=== PATIENT | male | born 1965 | race Caucasian/White ===

== ENCOUNTER 2021-02-24 13:24 | Emergency (ER) | payer OTHER ==
[~2021-02-24 13:24] MED LIST: COLACE100 MG PO; DULCOLAX10 MG PR; NORCO 5-325 TA1 EACH PO; NORVASC5 MG PO; ZOFRAN4 MG PO
[2021-02-24 14:11] LABS: BASOPHIL 0.6 % (0-2); EOSINOPHIL 4.3 % (0-5); HCT 45.5 % (42.0-52.0); LYMPHOCYTE 30.1 % (15-48); MCH 30.9 pg (25.0-31.0); MCV 93.8 fL (78.0-100.0); MONOCYTE 7.3 % (0-12); MPV 10.1 fL (6.0-9.5); NEUTROPHIL 57.4 % (41-80); NRBC 0; PLT 244 K/uL (150-400); RBC 4.85 M/uL (4.70-6.00); RDW 12.2 % (11.5-14.0); WBC 6.9 K/uL (4.0-10.5)
[2021-02-24 14:17] LABS: ALBUMIN 3.6 g/dL (3.4-5.0); BILIRUBIN - TOTAL 0.4 mg/dL (0.2-1.0); BUN/CREAT RATIO (CALC) 14.7 RATIO; CREATININE 1.09 mg/dL (0.67-1.17); GLOBULIN (CALCULATION) 2.9 g/dL; POTASSIUM 3.8 mmol/L (3.5-5.1); TOTAL PROTEIN 6.5 g/dL (6.4-8.2)
[2021-02-24 14:22] LABS: CKMB 1.7 ng/mL (0.0-3.6); PRO-BNP 10 pg/mL (<125)
[2021-02-24 14:36] LABS: INR 1.05 (0.9-1.2); PROTHROMBIN TIME 13.1 SECONDS (11.8-13.4); PTT 24.9 SECONDS (24.4-34.7)
== END 2021-02-24 18:05 | disposition home or self-care (01) ==
LOC: FER 13:24
PROVIDERS: Emergency Medicine
DX: R07.9 Chest pain, unspecified (principal); I10 Essential (primary) hypertension; E66.9 Obesity, unspecified; Z90.89 Acquired absence of other organs; Z87.891 Personal history of nicotine dependence
CPT/HCPCS: 36415; 71045; 71275; 80053; 82553; 83735; 83874; 83880; 84484; 85025; 85610; 85730; 93005; Q9967